=== PATIENT | male | born 1970 | race African-American/Black ===

== ENCOUNTER 2016-07-24 00:15 | Emergency (ER) | payer OTHER ==
[~2016-07-24] VITALS: Ht 185.4 cm; Wt 108.9 kg
[~2016-07-24 00:15] MED LIST: PEPCID20 M1 PO
[2016-07-24] MEDS ORDERED: Ketorolac 60mg Inj IM ONE (00:45)
[2016-07-24] MEDS ORDERED: NORCO 5-325 TA1 EACH ORAL (01:21)
[2016-07-24] MEDS ORDERED: IBUPROFEN600 MG ORAL (01:21)
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
[2016-07-24 04:35] VITALS: BP 133/94
[2016-07-24 05:28] VITALS: BP 133/94
--- NOTE | 2016-07-24 10:24 | Diagnostic Imaging Report ---
Indication: Pain Comparison: None Findings: 3 views of the right ankle obtained. There is an acute fracture of the lateral malleolus. Soft tissue swelling is present. In addition there is abnormal widening of the medial malleolus/talus suggestive of deltoid ligament injury. Impression: Acute lateral malleolus fracture and suspicion of deltoid ligament rupture.
== END 2016-07-24 05:27 | disposition home or self-care (01) ==
LOC: EDBD 00:15 → EMR 00:57
DX: S82.491A Other fracture of shaft of right fibula, initial encounter for closed fracture (principal); X58.XXXA Exposure to other specified factors, initial encounter; Y93.9 Activity, unspecified; Y92.9 Unspecified place or not applicable; I10 Essential (primary) hypertension
CPT/HCPCS: 29505; 96372; 99284